=== PATIENT | female | born 1975 | race Two or more races ===

== ENCOUNTER 2021-12-30 08:57 | Outpatient (CLI) | payer OTHER ==
[~2021-12-30 08:57] MED LIST: IMODIUM2 MG PO; PANADOL EXTRA500 MG PO; TEKTURNA150 MG
== END 2021-12-30 09:20 | disposition home or self-care (01) ==
LOC: SONOGRAMA 08:57
PROVIDERS: ATTEND Obstetrics & Gynecology
DX: N84.0 Polyp of corpus uteri (principal)